=== PATIENT | male | born 1995 | race Caucasian/White ===

== ENCOUNTER 2018-07-31 14:11 | Outpatient (CLI) | payer OTHER ==
[~2018-07-31 14:11] MED LIST: Iopamidol 370 76% 100 ML VIAL ONE
--- NOTE | 2018-07-31 17:22 | CT ---
CT NECK WITH CONTRAST: Date: 07/31/18 HISTORY: 22-year-old male with right neck mass. TECHNIQUE: External marker placed at site of palpable lump. IV injection of 100 mL Isovue-[id number]. 90 second delayed scan performed from upper orbits to jimmy. COMPARISON: None. FINDINGS: The site of the palpable lump corresponds to an approximately 3.0 x 1.5 x 1.5 cm right supraclavicula r lymph node. In fact, there are numerous other enlarged bilateral supraclavicular lymph nodes, most of them are at Level V. Some are Level IV. No enlarged Level I or Level II lymph nodes are visualized. There are jud rderline in size right Level III lymph nodes. There are numerous abnormally enlarged upper mediastinal lymph nodes. For example, there is a right p aratracheal lymph node that measures approximately 2.5 x 2.5 x 3 cm. None of the lymph nodes appear to be necrotic. The lower cervical lymph nodes have smooth margins. Ot her than the lymphadenopathy, there is no other abnormality identified involving the posterior cervic al, parapharyngeal, parotid, carotid, pharyngeal mucosal, submandibular, retropharyngeal, and periver tebral spaces. No destructive osseous lesion. IMPRESSION: Bilateral supraclavicular (mostly Level V) and mediastinal lymphadenopathy. Malignant process such as lymphoma is suspected. Tissue sampling should be considered. POS: MUNA
== END 2018-07-31 14:12 | disposition home or self-care (01) ==
LOC: BICCT 14:11
PROVIDERS: ATTEND Otolaryngology Plastic Surgery within the Head & Neck
DX: R22.1 Localized swelling, mass and lump, neck (principal); R59.0 Localized enlarged lymph nodes
CPT/HCPCS: 70491

== ENCOUNTER 2018-08-02 08:41 | Day surgery (SDC) | payer OTHER ==
[2018-08-01 16:14] VITALS: BMI 37.8
[2018-08-02] MEDS ORDERED: Ferric Subsulfate 8 ML BOT ONE (10:39)
[2018-08-02] MEDS ORDERED: Bacitracin Zinc Ointment 30 gm TUBE ONE (10:39)
[2018-08-02] MEDS ORDERED: Lidocaine 1% w/Epinephrine 1:100K 30 ML VIAL ONE (10:39)
[2018-08-02] MEDS ORDERED: Fentanyl 100 MCG/2 ML VIAL ONE (10:46)
[2018-08-02] MEDS ORDERED: PROPOFOL 200 MG/20 ML VIAL ONE (16:49)
[2018-08-02] MEDS ORDERED: Lidocaine 1% PF 5 ML VIAL ONE (16:49)
[2018-08-02] MEDS ORDERED: Dexamethasone 20 MG/5 ML VIAL ONE (16:49)
[2018-08-02] MEDS ORDERED: Ondansetron PF 4 MG/2 ML Vial ONE (16:49)
--- NOTE | 2018-08-03 13:14 | OP ---
DATE OF PROCEDURE: 08/02/2018 PREOPERATIVE DIAGNOSIS: Right deep neck lymph node. POSTOPERATIVE DIAGNOSIS: Right deep neck lymph node. PROCEDURE: Excisional biopsy of right supraclavicular lymph node. SURGEON: Ravin Pollock M.D. ESTIMATED BLOOD LOSS: Less than 5 mL. COMPLICATIONS: None. ANESTHESIA: GETA. PROCEDURE IN DETAIL: The patient was taken to the operating room and placed on the table. General e ndotracheal anesthesia was obtained by the Anesthesia staff. Tube was placed in the left lower lip. Shoulder roll was placed and the patient was prepped and draped in standard surgical fashion. The r ight level 5 supraclavicular lymph node was identified and was marked and incision was made overlying this lymph node, dissection was carried through the platysmal layer into the deep neck musculature c ompartment. A 3 cm firm rubbery lymph node was removed and sent for pathological analysis to rule ou t lymphoma or malignancy. Following this, the wound was irrigated. Hemostasis was obtained. The pl atysmal layer and subcuticular layers were closed using Monocryl stitches. The skin was closed using Prolene stitches. The patient tolerated the procedure well.
== END 2018-08-02 13:30 | disposition home or self-care (01) ==
LOC: SDC 08:41
PROVIDERS: ATTEND Otolaryngology Plastic Surgery within the Head & Neck
PROC: 07B10ZX Excision of Right Neck Lymphatic, Open Approach, Diagnostic (ICD-10-PCS; principal; 2018-08-02)
DX: C81.11 Nodular sclerosis Hodgkin lymphoma, lymph nodes of head, face, and neck (principal); F98.8 Other specified behavioral and emotional disorders with onset usually occurring in childhood and adolescence; Z79.899 Other long term (current) drug therapy
CPT/HCPCS: 88184; 88307; 88333; 88341; 88342; J1100; J2001; J2405; J2704; J3010

== ENCOUNTER 2018-08-18 08:23 | Outpatient (CLI) | payer OTHER ==
--- NOTE | 2018-08-18 12:21 | PET ---
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 Exam requested for initial staging. TECHNIQUE: PET scanning with CT attenuation correction was performed from the vertex through the proximal thighs following the intravenous administration of 12.3 mCi [id number]. Imaging was performed after an uptake interval of 71 minutes. COMPARISON: None. CORRELATION: CT neck of 07/31/18. FINDINGS: There is mumtaz hypermetabolism in the supraclavicular lymph nodes bilaterally, mediastinal and right hilar lymph nodes. These demonstrate maximum SUVs of 14.4 in the left supraclavicular lymph node, 7.7 in the right supraclavicular lymph node, 12 in the right paratracheal, 14.7 in the right paracaval, and 6.1 in the right hilar lymph node. No mumtaz hypermetabolism is seen in the axilla, abdomen, pelvis, or inguinal regions. No hypermetabolic pulmonary nodules, liver, adrenal, or skeletal lesions are identified. There is physiologic activity in the GI and tracts, and the brain. The CT scan used for attenuation correction demonstrates no evidence of pleural effusions or ascites. IMPRESSION: Viable lymphoma above the level of the diaphragm ([place] 5). POS: PATTIH
== END 2018-08-18 08:24 | disposition home or self-care (01) ==
LOC: PET 08:23
PROVIDERS: ATTEND Radiology Radiation Oncology
DX: C81.90 Hodgkin lymphoma, unspecified, unspecified site (principal)
CPT/HCPCS: 78815; A9552

== ENCOUNTER 2018-08-23 13:36 | Outpatient (CLI) | payer OTHER | END 2018-08-23 13:37 | disposition home or self-care (01) | LOC: CP 13:36 → ULT 13:37 | PROVIDERS: ATTEND Internal Medicine Hematology & Oncology | DX: C81.12 Nodular sclerosis Hodgkin lymphoma, intrathoracic lymph nodes (principal); I07.1 Rheumatic tricuspid insufficiency; Z79.899 Other long term (current) drug therapy | CPT/HCPCS: 93306; 94060; 94727; 94729 ==